=== PATIENT | male | born 1985 | race Caucasian/White ===

== ENCOUNTER 2016-08-17 10:45 | Emergency (ER) | payer OTHER ==
[~2016-08-17] VITALS: Ht 162.6 cm; Wt 70.0 kg
[2016-08-17 10:50] VITALS: Ht 162.6 cm; Wt 70.0 kg
--- NOTE | 2016-08-17 11:18 | ERD ---
ER Documentation Chief Complaint Date/Time DATE: 08/17/16 TIME: 11:16 Chief Complaint pt bib self with c/o left index finger injury 3 days ago, recheck, wkm comp HPI This a 31-year-old male who presents the emergency department today for a wound check of an injury that he sustained a couple of days ago. Patient was seen at [facility] and he came to this emergency room as he has some concerns about some blood clotting on his finger. Patient states he is taking his medication has been wearing his splint. He states this is a workers comp injury and he is waiting for referral to orthopedics. Denies any fevers or chills. ROS All systems reviewed and are negative except as per history of present illness. Allergies Allergies: Coded Allergies: No Known Allergy (Unverified , 08/17/16) PMhx/Soc Medical and Surgical Hx: Unable to obtain Hx Alcohol Use: Yes Hx Substance Use: No Hx Tobacco Use: No Smoking Status: Never smoker Physical Exam Vitals Vital Signs Date Time Temp Pulse Resp B/P Pulse Ox O2 Delivery O2 Flow Rate FiO2 08/17/16 10:50 98.3 74 16 128/74 99 Physical Exam Const: No acute distress Head: Atraumatic Eyes: Normal Conjunctiva ENT: Normal External Ears, Nose and Mouth. Neck: Full range of motion..~ No meningismus. Resp: Clear to auscultation bilaterally Cardio: Regular rate and rhythm, no murmurs Skin: No petechiae or rashes MSK left hand index finger with evidence of Surgicel and sutures placed. Evidence of clotted blood. Full active range of motion at PIP and IP joint. No erythema or warmth. No purulent drainage. Pulses 2+. Distal neurovascularly intact. Neur: Awake and alert Psych: Normal Mood and Affect Procedures/MDM This a 31-year-old male who presents to the emergency department today for a wound check of an injury that he sustained on August 14 while working for his job. Patient states he crushed his finger. Patient was seen at [facility] and was diagnosed with a laceration as well as a distal phalanx fracture. Patient was placed in a splint. Patient was concerned because he states that there is a blood clot he is concerned that it is going to delay healing. On physical exam patient had evidence of Surgicel placed along with sutures placed in multiple areas. There is no erythema or warmth. There is no purulent drainage. Area appears to be clotted at this time secondary to the Surgicel. I have explained to the patient that I do not feel be beneficial to remove the Surgicel at this time as it may remove some of the sutures as well and he may have repeat bleeding. Patient is afebrile and otherwise well- appearing. There is no erythema or warmth. There is no evidence of cellulitis or purulent drainage. Low suspicion for sepsis, deep space infection. Patient was instructed to continue taking his Keflex he may continue taking his Leisenring for pain. He was instructed to follow back up in regards to his workers comp claim and referral to orthopedics. His wound was redressed and he was placed back in his splint. At this time the patient is stable for discharge and outpatient management. Patient should follow up with their PCP in the next 1-2 days. They may return to the emergency department sooner for any persistent or worsening of symptoms. Patient understood and agreed with the plan. Departure Diagnosis: Primary Impression: Finger injury Encounter type: initial encounter Laterality: left Qualified Code: S69.92XA - Finger injury, left, initial encounter Additional Impression: Visit for wound check Condition: DEBORAH Baker PA-C Aug 17, 2016 11:18
== END 2016-08-17 11:59 | disposition home or self-care (01) ==
LOC: FTE 10:45
DX: Z48.01 Encounter for change or removal of surgical wound dressing (principal)
CPT/HCPCS: 99282